=== PATIENT | female | born 1970 | race Caucasian/White ===

== ENCOUNTER 2019-10-19 15:49 | Inpatient (IN) | payer OTHER ==
--- NOTE | 2019-10-19 16:02 | ED ---
Complex/Multi-Sys Presentation - HPI Summary HPI Summary: 49 y/o F brought in by EMS from home for concern for seizure witnessed seizure by . From home, does not remember what happened. Has been feeling sick recently with nausea/vomiting and diarrhea for 3 days. Tmax 100.7F. Some abdominal pain in middle of abdomen. No medical problems. No hx seizures, no FHx seizures. Reporting back pain. Patient thinks pain from being in bed. Feels like a burning pain. Reporting 10/10 band like back pain. No hx back pain. No trauma. Symptoms aggravated by nothing. Symptoms alleviated by nothing. Medications reviewed. - History Of Current Complaint Chief Complaint: EDGeneral Time Seen by Provider: 10/19/19 15:56 Hx Obtained From: Patient Onset/Duration: Still Present Aggravating Factor(s): Nothing Alleviating Factor(s): Nothing - Allergies/Home Medications Allergies/Adverse Reactions: Allergies Allergy/AdvReac Type Severity Reaction Status Date / Time No Known Allergies Allergy Verified 10/29/18 07:09 Home Medications: Home Medications NK [No Home Medications Reported] 10/19/19 [History Confirmed 10/19/19] PMH/Surg Hx/FS Hx/Imm Hx Sensory History: Reports: Hx Contacts or Glasses - GLASSES Opthamlomology History: Reports: Hx Contacts or Glasses - GLASSES Neurological History: Denies: Hx Seizures Psychiatric History: Reports: Hx Anxiety - Cancer History Hx Chemotherapy: No Hx Radiation Therapy: No - Surgical History Surgery Procedure, Year, and Place: TUBAL LIGATION, CHOLECYSTECTOMY [facility] Hx Anesthesia Reactions: No Infectious Disease History: No Infectious Disease History: Denies: History Other Infectious Disease, Traveled Outside the [place] in Last 30 Days - Family History Known Family History: Positive: Cardiac Disease, Hypertension, Diabetes, Other - stroke, cancer, thyroid disease Negative: Seizure Disorder - Social History Alcohol Use: Rare Substance Use Type: Reports: None Hx Tobacco Use: Yes Smoking Status (MU): Heavy Every Day Tobacco Smoker Amount Used/How Often: 1 PPD Have You Smoked in the Last Year: Yes Review of Systems Positive: Fever Positive: Abdominal Pain, Vomiting, Diarrhea, Nausea Positive: Other - back pain Neurological/Mental Status: Other - seizure All Other Systems Reviewed And Are Negative: Yes Physical Exam - Summary Physical Exam Summary: Constitutional: Well-developed, Well-nourished, Alert. (-) Distressed Skin: Warm, Dry HENT: Normocephalic; Atraumatic Eyes: Conjunctiva normal Neck: Musculoskeletal ROM normal neck. (-) JVD, (-) Stridor, (-) Nuchal rigidity Cardio: Rhythm regular, rate normal, Heart sounds normal; Intact distal pulses; Radial pulses are 2+ and symmetric. (-) Murmur Pulmonary/Chest wall: Effort normal. (-) Respiratory distress, (-) Wheezes, (-) Rales Abd: Soft, (-) tenderness, (-) Distension, (-) Guarding, (-) Rebound Musculoskeletal: (-) Edema; lower thoracic and upper lumbar spine tenderness >L than R Lymph: (-) Cervical adenopathy Neuro: Alert, Oriented x2. GCS 14 Psych: deferred Triage Information Reviewed: Yes Vital Signs On Initial Exam: Initial Vitals Temp Pulse Resp BP Pulse Ox 100.0 F 89 16 178/109 94 10/19/19 15:52 10/19/19 15:52 10/19/19 15:52 10/19/19 15:52 10/19/19 15:52 Vital Signs Reviewed: Yes Procedures - Sedation Patient Received Moderate/Deep Sedation with Procedure: No - Lumbar Puncture Left Lateral Lumbar Puncture Note: 2 attempts Unsuccessful Diagnostics - Vital Signs Vital Signs Temp Pulse Resp BP Pulse Ox 10/19/19 15:52 100.0 F 89 16 178/109 94 - Laboratory Result Diagrams: 10/22/19 04:35 10/22/19 04:35 Lab Statement: Any lab studies that have been ordered have been reviewed, and results considered in the medical decision making process. - CT BRAIN CT Interpretation Completed By: Radiologist - IMPRESSION: No acute intracranial pathology. ED physician has reviewed this imaging report. ABD/PEL CT Interpretation Completed By: Radiologist - IMPRESSION: 1. There is mild wall thickening and possible wall edema involving the proximal duodenum, cannot exclude mild duodenitis. 2. There is colonic diverticulosis without evidence for acute diverticulitis. 3. No acute traumatic CT pathology of the abdomen or pelvis. ED physician has reviewed this imaging report. Complex Multi-Symp Course/Dx Course Of Treatment: 49 y/o F p/w AMS and seizure as well as n/v/d. - on arrival to ED patient confused, reporting back pain. Hx limited 2/2 patient confusion, called but no significant hx obtained other than possible seizure. Hx drug use and EtOH use. Denies IVDU. DDx includes overodose/ substance use, EtOH w/d, meningitis (attempted LP unable to 2/2 patient tolerance and difficult tap, covered broadly w ABx). Also consider GI source infection w WBC 24, CT a/p unremarkable (bone cuts added for T spine pain). Also consider epidural abscess/osteo given fever and back pain. Denies SOB, CXR obtained in setting of L sided back pain to r/o PNA. Admit to medicine - Diagnoses Provider Diagnoses: Altered mental status, Sepsis, Seizure - Physician Notifications Discussed Care Of Patient With: Gary Carson - Agrees to admit Time Discussed With Above Provider: 20:27 Discharge ED - Sign-Out/Discharge Documenting (check all that apply): Patient Departure - Discharge Plan Condition: Stable Disposition: ADMITTED TO [facility] - Billing Disposition and Condition Condition: STABLE Disposition: Admitted to [facility] - Attestation Statements Document Initiated by Kimberlyibe: Yes Documenting Scribe: Yvonne Richter Provider For Whom Kendra is Documenting (Include Credential): Donna Hand MD Scribe Attestation: IYvonne, scribed for Donna Hand MD on 10/22/19 at 0714. Scribe Documentation Reviewed: Yes Provider Attestation: The documentation as recorded by the scribYvonne talley accurately reflects the service I personally performed and the decisions made by me, Donna Hand MD Status of Scribe Document: Viewed
[2019-10-19] MEDS ORDERED: Ondansetron INJ* 2 MG/ML VIAL IV ONE (16:12)
[2019-10-19] MEDS ORDERED: Morphine 4 MG/ML VIAL (1 ml) 4 MG/ML VIAL IV ONE ×2 (16:12→18:00)
[2019-10-19] MEDS ORDERED: NS 0.9% 1000 ML** 1,000 ML IV ONE (16:12)
[2019-10-19 16:41] LABS: ABS Lymphocytes 1.8 10^3/ul (1.0-4.8); ABS Monocytes 2.4 10^3/ul (0-0.8); ABS Neutrophils 20.6 10^3/ul (1.5-7.7); Eosinophil % 0.1 %; Hematocrit 50 % (35-47); Hemoglobin 17.2 g/dL (12.0-16.0); Lymphocyte % 7.4 %; Mean Corpuscular HGB Conc 34 g/dL (31-36); Mean Corpuscular Hemoglobin 32 pg (27-31); Mean Corpuscular Volume 92 fL (80-97); Mean Platelet Volume 9.3 fL (7.4-10.4); Platelet Count 239 10^3/uL (150-450); Red Blood Count 5.47 10^6 /uL (3.70-4.87); Red Cell Distribution Width 13 % (10-15); White Blood Count 24.8 10^3/uL (3.5-10.8)
[2019-10-19 16:50] LABS: INR 1.1 (0.82-1.09)
[2019-10-19] MEDS ORDERED: cefTRIAXone(*) 2 GM in NS 0.9% 100 ML* 100 ML IVPB ONE (17:08)
[2019-10-19] MEDS ORDERED: Ampicillin IV* 2 GM in NS 0.9% 100 ML* 100 ML IVPB ONE (17:08)
[2019-10-19 17:11] LABS: Acetaminophen < 15 mcg/mL; Albumin/Globulin Ratio 1.4 (1-3); BUN/Creatinine Ratio 21.6 (8-20); Calcium 8.9 mg/dL (8.6-10.3); EGFR African American 100.5 (>60); EGFR Non-African American 83.1 (>60); Globulin 2.8 g/dL (2-4); Potassium 3.1 mmol/L (3.5-5.0); Salicylate < 2.50 mg/dL (<30); Total Bilirubin 0.8 mg/dL (0.2-1.0); Total Protein 6.8 g/dL (6.4-8.9)
[2019-10-19] MEDS ORDERED: Iohexol 300* (CONTRAST) 10 ML SDV IV ONE (17:52)
[2019-10-19] MEDS ORDERED: Vancomycin(*) 1,500 MG in NS 0.9% 250 ML* 250 ML IVPB ONE (18:00)
[2019-10-19] MEDS ORDERED: Vancomycin(*) 1,000 MG VIAL IVPB SCH (18:00)
[2019-10-19] MEDS ORDERED: Lidocaine 1% INJ* 10 MG/ML 30 ML SDV INJ ONE (19:15)
[2019-10-19] MEDS ORDERED: HYDROmorphone INJ* 0.5 MG/0.5 ML SYRINGE IV ONE (19:15)
[2019-10-19] MEDS ORDERED: NS 0.9% 100 ML* 100 ML ONE (19:22)
[2019-10-19] MEDS ORDERED: NS 0.9% 250 ML* 250 ML ONE (19:22)
[2019-10-19] MEDS ORDERED: fentaNYL* 50 MCG/ML 2 ML VIAL (100 MCG VIAL) IV SLOW PU ONE (20:08)
[2019-10-19 21:03] LABS: Urine Benzodiazepine Screen None Detected (None Detect); Urine Opiates Screen Presumptive Positive (None Detect)
[2019-10-19] MEDS ORDERED: HYDROmorphone INJ* 0.5 MG/0.5 ML SYRINGE IV SLOW PU PRN (21:06)
[2019-10-19] MEDS ORDERED: Ondansetron INJ* 2 MG/ML VIAL IV PRN (21:10)
[2019-10-19 21:26] LABS: C Reactive Protein 6.51 mg/L (<8.01)
[2019-10-19] MEDS ORDERED: Acetaminophen TAB* 325 MG PO PRN (22:01)
[2019-10-19 22:49] LABS: Alcohol < 10 mg/dL (<10)
[2019-10-19] MEDS ORDERED: levETIRAcetam 1000MG IVPREMIX* 1,000 MG/100 ML BAG IVPB ONE (23:37)
[2019-10-19] MEDS ORDERED: Potassium Chlor TAB* 20 MEQ TAB.ER PO ONE (23:47)
[2019-10-20 00:08] LABS: Prolactin 7.8 ng/mL (1.0-25.0)
[2019-10-20 00:18] LABS: Troponin I 0.01 ng/mL (<0.03)
[2019-10-20] MEDS ORDERED: Iohexol 300* (CONTRAST) 10 ML SDV IV ONE (00:22)
[2019-10-20] MEDS ORDERED: Nicotine* 2MG (FRUIT FLAVOR) GUM PO PRN (00:37)
[2019-10-20] MEDS: NS 0.9% 1000 ML** 1,000 ML IV SCH ×2 (01:30→12:04)
[2019-10-20] MEDS ORDERED: HYDROmorphone INJ* 0.5 MG/0.5 ML SYRINGE IV SLOW PU PRN ×2 (02:17→02:18)
[2019-10-20] MEDS ORDERED: HYDROmorphone INJ1* 1 MG/ML SYRINGE ONE (02:26)
[2019-10-20] MEDS ORDERED: HYDROmorphone INJ1* 1 MG/ML SYRINGE IV SLOW PU PRN (02:46)
[2019-10-20] MEDS ORDERED: Potassium Chlor TAB* 20 MEQ TAB.ER PO ONE (04:00)
--- NOTE | 2019-10-20 04:03 | HP ---
CC: Dr. Jaime* ADMISSION HISTORY AND PHYSICAL: DATE OF ADMISSION: 10/19/19 PRIMARY CARE PHYSICIAN: Dr. Jaime. ADMITTING PHYSICIAN: Dr. Carson* (Jefry Shaw NP). CHIEF COMPLAINT: Sick for the last few days. HISTORY OF PRESENT ILLNESS: Ms. Henson is a 49-year-old female with past medical history significant for anxiety. She presented to the emergency department today via EMS after her called for what he reports was a seizure. The patient states that she went to bed last night, got up to go to the bathroom 1 time and the next thing she remembers is waking up with EMS in her home. She states that her says that she had a seizure but she is unaware of this. She does not remember any such activity. She does not remember falling. Denies any known injuries or accidents. She denies any history of prior seizures or familial history of seizures. She states that she was sick for the last 3 days with nausea, vomiting, and diarrhea. She has also had some abdominal pain and some left-sided upper back pain for the last few days. She denies eating any new foods or eating any foods that her did not eat. States that her is in his usual state of health. States that she has had very little fluids and no food for the last few days. States that the abdominal pain is near the middle of her abdomen. It feels tight at times and she is often nauseous. The back pain is to the mid to upper left area of her back, rates 9/10, constant, burning/tight pain. She denies any respiratory symptoms. No rhinorrhea, sore throat, cough, or shortness of breath. Denies any chest pain unusual or significant joint or muscle aches other than stated already. States that she has also had a headache for the last few days in the frontal area. She has taken ibuprofen, NyQuil, and DayQuil, unsure the last time that these were taken, with little to no relief. The patient agreed that her could be called. Her 's name is Shay, number [phone]. He states that the patient had what looked like a seizure last night as well as earlier today. He states that both episodes lasted for about a few minutes each. The patient was unresponsive to her , noted that she was not breathing, her face was turning "black," she was diaphoretic, foaming at the mouth, and her muscles would get extremely tense and he could not break her muscle tension. States that the episode earlier today lasted for approximately 4 minutes. denies any recent drug use by his other than her taking his prescribed gabapentin. States he is unaware of any other medications that she may take. He is unsure of how many pills she takes at a time. He states that he thinks sometimes she will take about 10 pills at a time. He states she takes these for her back pain. The patient originally denied any illicit drug use. After urine tox screen came back positive for opiates and cannabinoids, the patient was re- questioned about these substances. The patient stated that she did recently have an edible marijuana treat. Denies any injectable drug use. States that she may have had an opiate-based pill about a week ago but is unsure of what it was and is unsure of exactly when. She is not very forthcoming with this information. The patient denies any bleeding or clotting disorders. Denies any recent hospitalizations or recent antibiotic use. While in the emergency department, there was an unsuccessful attempt at an LP. Meningitis was within the differential list originally in relation to possible seizure activity especially with a white count of 24.8. However, it was discussed with both ED provider and Dr. Carson that it seems very unlikely for the patient to have meningitis. She has no nuchal rigidity, negative Brudzinski sign, negative Kernig sign. While in the emergency department, her temperature did reach 100.0, tachycardic at times with heart rate in the 80s to low 100s, respiratory rate within normal limits, blood pressures high with systolic in the 140s to 190s and diastolic often in the low to mid 100s. She did receive pain medications, antinausea medications, ampicillin, ceftriaxone, and vancomycin. She also received 1 L of normal saline. Due to the patient's unexplained leukocytosis and what sounds like seizure-like activity, Hospital Medicine was asked to evaluate the patient for admission. PAST MEDICAL HISTORY: Anxiety. PAST SURGICAL HISTORY: 1. Tubal ligation in 1992. 2. Cholecystectomy in 2001. 3. Breast surgery in 2019. HOME MEDICATIONS: States no usual home medications. ALLERGIES: No known drug allergies. FAMILY HISTORY: Father with heart disease, hypertension, diabetes mellitus, and congestive heart failure. Mother with hypertension. No known familial history of seizures. SOCIAL HISTORY: The patient states she is undecided about a surrogate decision maker. Wishes to continue as full code status. She is . Has 3 children. 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 States that she smokes 1 pack of cigarettes per day, has been doing this for she states 30+ years for a 30+ pack year history. Denies any alcohol use. Admits to drug use as stated in the HPI. Denies any other illicit drug use. REVIEW OF SYSTEMS: A 14-point review of systems was completed with this patient. Please see HPI for pertinent positives and negatives. PHYSICAL EXAMINATION CONSTITUTIONAL: The patient is sitting up in bed, appears to be in significant discomfort. VITAL SIGNS: Last vital signs, temp 100.0, pulse 98, respiratory rate 20, O2 saturation 95% on room air, BP 161/95. HEENT: PERRL. LYMPHATIC: No cervical lymphadenopathy. RESPIRATORY: Lung sounds clear throughout bilaterally. Normal respiratory effort. CARDIOVASCULAR: Heart rate irregular, fast. S1, S2 present. No murmurs, rubs , or gallops noted. GI: Hyperactive bowel sounds throughout. Abdomen soft, some tenderness noted near epigastric area and slightly more towards the left upper quadrant. EXTREMITIES: No edema. MUSCULOSKELETAL: Range of motion and strength within normal limits to all extremities. SKIN: Appears dry and intact. Per access site, 4 attempted LP covered with dressing. No drainage noted. NEUROLOGIC: Alert and oriented x3. Cranial nerves II through XII grossly intact. No nuchal rigidity. Negative Brudzinski sign. Negative Kernig sign. DIAGNOSTIC STUDIES/LAB DATA: CT brain, impression states no acute intracranial pathology. Abdomen and pelvis CT, impression states there is mild wall thickening and possible wall edema involving the proximal duodenum, cannot exclude mild duodenitis. There is colonic diverticulosis without evidence for acute diverticulitis. No acute traumatic CT pathology of the abdomen or pelvis. Chest x-ray: Read pending. Thoracic spine CT: Read pending. EKG: Sinus tachycardia with a rate of 101 beats per minute. No significant ST elevations or depressions. This was reviewed with Dr. Carson. Laboratory values: WBC 24.8, RBC 5.47, hemoglobin 17.2, hematocrit 50, MCV 92, MCH 32, MCHC 34, RDW 13, platelet count 239, absolute neutrophils 20.6, absolute monos 2.4. INR 1.10. Sodium 135, potassium 3.1, chloride 102, carbon dioxide 24, anion gap 9, BUN 16, creatinine 0.74, estimated GFR 83.1, BUN and creatinine ratio 21.6, glucose 138, lactic acid 1.1, calcium 8.9, magnesium pending. Total bilirubin 0.8, AST 31, ALT 37, alk phos 265. Troponin 0.01. CRP 6.51. Total protein 6.8, albumin 4.0, globulin 2.8, albumin-globulin ratio 1.4, lipase 75, prolactin 7.8. Toxicology report, salicylates less than 2.5. Urine opiate screen presumptive positive. Acetaminophen less than 15. Urine barbiturates not detected. Urine phencyclidine not detected. Urine amphetamines not detected. Urine benzodiazepines not detected. Urine cocaine not detected. Urine cannabinoids presumptive positive. Serum alcohol less than 10. ASSESSMENT AND PLAN: Ms. Henson is a 49-year-old female with past medical history significant for anxiety. She presented today to the emergency department via EMS after reports of seizure-like activity from her . 1. Seizure-like activity. Per 's report, the patient had what he thought to be 2 seizures over the last couple of days. Prolactin level 7.8. Differentials include adverse effect from unknown amounts of gabapentin as status epilepticus is a known adverse effect versus underlying infection versus drug withdrawal. Neurology consult. EEG ordered. Keppra loading dose and maintenance dose ordered. Gabapentin level ordered. Seizure precautions. 2. Systemic inflammatory response syndrome. WBC 24.8, temp 100.0, and tachycardia. Lactic 1.1. The patient does not appear to have acute systemic infection at this time. Blood cultures drawn. The patient has received 1 L IVF bolus and has been hypertensive since arrival. She has also received antibiotics in the emergency department including ampicillin, ceftriaxone, and vancomycin. We will be watching her very closely. Labs in a.m. 3. Leukocytosis. If the patient was truly having seizures, this could be transient spike in WBCs. However, there may be an unidentified infection. Meningitis is very low on the list of differentials considering the negative nuchal rigidity, negative Brudzinski, and negative Kernig sign. However, she does not appear to have any other obvious signs of infection at this time. Again, we will continue to watch her very closely. The patient also has been having nausea, vomiting, and diarrhea for the last few days. She is likely dehydrated, which could also be a potentiating factor for leukocytosis. Labs in a.m. 4. Back pain. It sounds as if the patient has had ongoing back pain for quite some time. However, she believes that this pain to her left upper back is somewhat new over the last few days. Her notes that she fell in the bathroom prior to her seizure earlier today. The patient is unaware if she has had any other episodes of falling or injury. However, given the clinical picture, it is reasonable to assume that this may be from injury. CT thoracic spine ordered. 5. Hypokalemia. Potassium level 3.1. Replete with potassium chloride tab 40 mEq x2 doses ordered. Labs in a.m. 6. Hypertension. The patient has been hypertensive since arrival. I will continue to monitor her blood pressures. If she continues to be hypertensive, it will be reasonable to add an ZAKIYA inhibitor to her medication regimen. 7. Polysubstance abuse. Social work consult entered. 8. Tobacco use. Tobacco cessation education ordered. Nicotine gum p.r.n. ordered. 9. FEN: Regular diet. 10. Code status: Full code. 11. DVT prophylaxis: SCDs. Holding chemical DVT prophylaxis in relation to attempted LP. 12. Consults. Neurology consult. We will contact in a.m. TIME SPENT: Approximately 75 minutes was spent on this admission with about 35 being [id number] with the patient for interview, exam, and reviewing plan of care. This case has been reviewed by my attending physician, Dr. Carson, and he agrees with this plan. JEFRY SHAW NP [id number]/CPS #: [id number] ADDENDUM: At approximately 0420 nursing called stating that pt is becoming more agitated, pulling at her medical devices, not seeming to be in as much pain but generally agitated and more restless. Reports that pt is diaphoretic. VSS with HR 96. Given her clinical findings, inconsistencies during history taking, and current presentation it is reasonable to assume she is withdrawing, may be opiates as they were found via urine tox screen but may be another substance such as ETOH. She will be placed on WAM protocol with ativan PRN especially given that she likely had recent seizures, dilaudid d/c'd, will have acetaminophen and tramadol available for pain. Recommend avoiding any other higher potency narcotic medications. MTDD
[2019-10-20] MEDS ORDERED: Thiamine INJ* 100 MG/ML 2 ML VIAL IM ONE (04:22)
[2019-10-20] MEDS ORDERED: Acetaminophen TAB* 325 MG PO PRN (04:22)
[2019-10-20] MEDS ORDERED: traMADol TAB* 50 MG PO PRN (04:51)
[2019-10-20] MEDS ORDERED: LORazepam TAB(*) 1 MG PO SCH (05:00)
[2019-10-20] MEDS ORDERED: LORazepam INJ* 2 MG/ML 1 ML VIAL IV PUSH ONE (07:27)
[2019-10-20] MEDS ORDERED: Lorazepam PYXIS KEY PRN (07:27)
[2019-10-20] MEDS ORDERED: LORazepam INJ* 2 MG/ML 1 ML VIAL ONE (07:30)
[2019-10-20] MEDS ORDERED: LORazepam INJ* 2 MG/ML 1 ML VIAL IV PUSH SCH (08:00)
[2019-10-20] MEDS ORDERED: levETIRAcetam TAB* 500 MG PO SCH (09:00)
[2019-10-20 09:10] LABS: Hematocrit 50 % (35-47); Hemoglobin 17.6 g/dL (12.0-16.0); Mean Corpuscular HGB Conc 35 g/dL (31-36); Mean Corpuscular Hemoglobin 32 pg (27-31); Mean Corpuscular Volume 92 fL (80-97); Mean Platelet Volume 9.3 fL (7.4-10.4); Platelet Count 234 10^3/uL (150-450); Red Blood Count 5.49 10^6 /uL (3.70-4.87); Red Cell Distribution Width 14 % (10-15)
[2019-10-20] MEDS ORDERED: chlordiazePOXIDE CAP* 25 MG PO ONE (09:14)
[2019-10-20 09:23] LABS: ABS Basophils 0.1 10^3/ul (0-0.2); ABS Lymphocytes 3.1 10^3/ul (1.0-4.8); ABS Monocytes 2.4 10^3/ul (0-0.8); ABS Neutrophils 16.5 10^3/ul (1.5-7.7); Eosinophil % 0.2 %
[2019-10-20 09:28] LABS: BUN/Creatinine Ratio 17.9 (8-20); Blood Urea Nitrogen 12 mg/dL (6-24); CO2 Carbon Dioxide 23 mmol/L (22-32); Calcium 8.6 mg/dL (8.6-10.3); Chloride 102 mmol/L (101-111); EGFR African American 112.7 (>60); EGFR Non-African American 93.2 (>60); Glucose 117 mg/dL (70-100); Sodium 133 mmol/L (135-145)
[2019-10-20] MEDS ORDERED: Piperacillin/Tazobac ADVAN(*) 3.375 GM in NS 0.9% 100 ML* 100 ML IVPB ONE (09:50)
[2019-10-20] MEDS ORDERED: Vancomycin per Pharmacy* NOTE FOLLOW UP SCH (10:00)
[2019-10-20] MEDS ORDERED: Zosyn per Pharmacy* NOTE FOLLOW UP SCH ×2 (10:00)
--- NOTE | 2019-10-20 10:08 | PN ---
Subjective Date of Service: 10/20/19 Interval History: Admitted overnight. LP not successful. EEG performed and results pending. Received collateral from patient's mother Ayanna Rooney that patient has been experiencing emesis for 3 days. States patient reports she felt very ill for 3 days and stayed in bed. Starting yesterday, patient started experiencing severe upper back pain, she thought it was from being in bed so long. Then, pt's son informed pt's mother that pt's noted that she lost consciousness and so he "banged her head against the floor" several times to "wake her up". Her has "brain damage" from history of multiple overdoses. Per patient's mother, her family called the ambulance 2 days ago, but the patient refused to come to the hospital. They called again yesterday and that is when she presented to the ER. The patient is too embarassed about her history of OUD ( intranasal heroin) and has not sought care for herself but takes her 's gabapentin and Suboxone. Mother denies h/o IV drug use. On exam this AM, patient able to state her name and state she has a headache, but frequently has agitated delirium and cannot participate in interview. Due to respiratory distress and hypoxia, she was transferred to the ICU. Objective Active Medications: Acetaminophen (Tylenol Tab*) 650 mg PO Q4H PRN PRN Reason: PAIN - MILD Folic Acid (Folvite Tab*) 1 mg PO DAILY [facility] Sodium Chloride (Ns 0.9% 1000 Ml) 1,000 mls @ 100 mls/hr IV PER RATE [facility] Last Admin: 10/20/19 01:30 Dose: 100 mls/hr Vancomycin HCl 1,000 mg/ (Sodium Chloride) 250 mls @ 166.667 mls/hr IVPB ONCE ONE; Protocol Stop: 10/20/19 11:18 Piperacillin Sod/Tazobactam (Sod 3.375 gm/ Sodium Chloride) 100 mls @ 200 mls/ hr IVPB ONCE ONE Stop: 10/20/19 10:19 Levetiracetam (Keppra Tab*) 500 mg PO BID [facility] Lorazepam (Ativan Tab(*)) 0 - 6 mg PO .PER [facility] PROTOCOL [facility]; Protocol Last Admin: 10/20/19 04:47 Dose: 4 mg Lorazepam (Ativan Inj*) 0 - 3 mg IV PUSH .PER [facility] PROTOCOL [facility]; Protocol Miscellaneous (Ativan Pyxis [place]) 1 ea N/A .ATIVAN IV MURCIA PRN PRN Reason: PYXIS MURCIA Multivitamins/Minerals (Theragran/Minerals Tab*) 1 tab PO DAILY [facility] Nicotine Polacrilex (Nicotine Gum*) 2 mg PO Q2H PRN PRN Reason: CRAVING Ondansetron HCl (Zofran Inj*) 4 mg IV Q4H PRN PRN Reason: NAUSEA Pharmacy Consult (Vancomycin Per Pharmacy*) 1 note FOLLOW UP .VANC PER PHARMACY [facility]; Protocol Pharmacy Consult (Zosyn Per Pharmacy*) 1 note FOLLOW UP .ZOSYN PER PHARMACY [facility] Pharmacy Consult (Zosyn Per Pharmacy*) 1 note FOLLOW UP .ZOSYN PER PHARMACY [facility] Thiamine HCl (Vitamin B-1 Tab*) 100 mg PO DAILY [facility] Tramadol HCl (Ultram*) 50 mg PO Q6H PRN PRN Reason: PAIN - MODERATE Last Admin: 10/20/19 05:10 Dose: 50 mg Vital Signs - 8 hr 10/20/19 10/20/19 10/20/19 02:27 02:34 02:36 Temperature Pulse Rate Respiratory 20 20 20 Rate Blood Pressure (mmHg) O2 Sat by Pulse Oximetry 10/20/19 10/20/19 10/20/19 04:02 04:13 04:22 Temperature 97.9 F Pulse Rate 96 Respiratory 20 20 20 Rate Blood Pressure 148/99 (mmHg) O2 Sat by Pulse 94 Oximetry 10/20/19 10/20/19 10/20/19 04:47 05:10 06:45 Temperature Pulse Rate Respiratory 20 20 20 Rate Blood Pressure (mmHg) O2 Sat by Pulse Oximetry 10/20/19 10/20/19 10/20/19 06:49 07:24 07:34 Temperature 100.2 F Pulse Rate 106 Respiratory 36 30 32 Rate Blood Pressure 176/115 (mmHg) O2 Sat by Pulse Oximetry 10/20/19 10/20/19 07:37 08:02 Temperature 98.8 F Pulse Rate 105 Respiratory 32 30 Rate Blood Pressure 146/90 (mmHg) O2 Sat by Pulse 92 Oximetry Oxygen Devices in Use Now: None Appearance: ill-appearing woman, disheveled Eyes: No Scleral Icterus Ears/Nose/Mouth/Throat: - - OP with secretions Neck: NL Appearance and Movements; NL JVP, Trachea Midline Respiratory: - - mucous rattle obscuring most adventitious sounds Cardiovascular: NL Sounds; No Murmurs; No JVD, RRR Abdominal: - - no grimace to palpation, soft Extremities: No Edema Skin: No Rash or Ulcers, - - dirt under nails and over feet Neurological: - - can state name, will occasionally track with eyes and close eyes to visual threat, PERRL, moving all extremities spontaneously and symmetrically but unable to follow commands Result Diagrams: 10/20/19 08:59 10/20/19 11:36 Assess/Plan/Problems-Billing Assessment: 49W with OUD (intranasal heroin), h/o alcohol use disorder, and anxiety, who presents from home with subacute malaise, back pain, fevers, and eventually loss of consciousness. Found with altered mental status and leukocytosis. - Patient Problems (1) Delirium Comment: Pt with h/o etoh and opioid abuse, and could be withdrawing from either. Also with questionable history of seizure at home prior to arrival - could be post-ictal. Per collateral from family - pt took extra doses of her 's suboxone and gapabentin for significant back pain, so medication side effect could be playing a role. Finally, this could be toxic-metabolic encephalopathy from unclear infection, given fevers and leukocytosis. - Neuro consult greatly apprecaited and Lawrence started - [facility] protocol initiated - supportive care - on broad spectrum abx in case of bacterial infection - f/u gabapentin level (2) Respiratory distress Comment: Possible consolidation on CXR, in context of leukocytosis and fevers. Unknown if patient had cough or dyspnea. Has been vomiting over the last 3 days and may have had a seizure, so aspiration is also likely. - on broad spectrum abx - supplemental O2 - transferred to ICU for higher level of care (3) Opioid use disorder Comment: History of intranasal heroin and taking her 's suboxone. Family denies IVDU. - monitor for signs of withdrawal and treat prn symptoms - consider [facility] referral on discharge (4) DVT prophylaxis Comment: - lovenox
[2019-10-20 10:19] LABS: Folate > 20.00 ng/mL (>3.99)
[2019-10-20] MEDS ORDERED: Vancomycin(*) 1,500 MG in NS 0.9% 250 ML* 250 ML IVPB ONE (10:30)
[2019-10-20] MEDS ORDERED: Haloperidol INJ IV/IM* 5 MG/ML AMP ONE (10:55)
[2019-10-20] MEDS ORDERED: Haloperidol INJ IV/IM* 5 MG/ML AMP IV SLOW PU ONE (10:55)
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
--- NOTE | 2019-10-20 11:00 | EEG ---
ELECTROENCEPHALOGRAPHY: DATE OF STUDY: 10/20/19 LOCATION: She is an outpatient in room 339. REFERRING PHYSICIAN: Doris Kingston NP CLINICAL PROBLEM: New onset seizures the evening before this recording. The patient is delirious. MEDICATIONS: Include: 1. Keppra. 2. Folic acid. 3. Lorazepam detox protocol. 4. Tramadol p.r.n. REPORT: This 19-channel EEG is remarkable for background rhythms consisting of excessive beta activity seen with a bifrontal predominance. The patient is described as confused and unable to state name or follow commands. There is diffuse background slowing in the low voltage delta and mainly theta range. There is an episodic increased theta activity of moderate voltage seen in the left frontotemporal region. The patient may drowse with vertex slowing. There may be some POSTS in the right occipital area not seen in the left. There are no clinical events. Stage II sleep is not identified. CLINICAL IMPRESSION: Abnormal EEG due to excessive beta rhythms consistent with benzodiazepine drug effect. In addition, there is diffuse slowing and disorganization of background rhythm consistent with diffuse encephalopathy. There is suggestion of episodic focal slowing from the left frontal temporal region suggestive of possible focal neuronal dysfunction in the left frontotemporal region. There are no ictal events and no epileptiform features to this recording. [id number]/[facility] #: [id number] [facility]
[2019-10-20 11:11] LABS: Anion Gap 8 mmol/L (2-11)
[2019-10-20] MEDS: Folic Acid TAB* 1 MG PO SCH (11:13)
[2019-10-20] MEDS: Thiamine TAB* 100 MG TAB PO SCH (11:13)
[2019-10-20] MEDS: Multivitamins/Minerals TAB PO SCH (11:13)
[2019-10-20 11:34] LABS: Creatine Kinase 11708 U/L (10-223)
[2019-10-20] MEDS: levETIRAcetam IV* 750 MG in NS 0.9% 100 ML* 100 ML IVPB SCH (12:38)
--- NOTE | 2019-10-20 14:58 | CONS ---
NEUROLOGY CONSULTATION DATE OF CONSULT: 10/20/2019. She is an inpatient in room 339. REFERRING PROVIDER: Doris Kingston NP. PRIMARY CARE PHYSICIAN: Dr. Jaime. CHIEF COMPLAINT: Seizure, mental status changes. HISTORY OF PRESENT ILLNESS: Tina Henson is a 49-year-old woman who presented to the emergency department via ambulance yesterday, reportedly with new onset seizures. The study is from the medical record as the patient is current encephalopathic. According to the records, she remembers waking up with ambulance attendants in her home. Her reported to the ambulance attendants that she had a seizure the night before and then again yesterday early in the day. According the descriptions in the records, they lasted several minutes and she appeared diaphoretic, foaming at the mouth, tense muscles and her face became dark. The patient was able to give history to Doris Kingston NP last evening in the emergency room. She stated that she remembers going to the bathroom and the next thing she knows ambulance attendants were there. She reported and her corroborated that she had been sick for about three days with abdominal pain, vomiting, and nausea. She had mid to upper back pain and a frontal headache. She is not on any prescription medications, but according to the discussion between Doris Kingston and her , Shay, over the phone last evening, she was taking his Gabapentin. When she came in, she had a positive urine tox screen for opiates and cannabinoids and Dr. Ricci tells me that it has been confirmed that she was also taking her husbands Suboxone. The patient admitted to Doris Kingston that she had had a marijuana treat some time that week. She also reported that she had used an opiate based pill about a week before, but she was unsure what it was. Subsequently, the discovery that she had taken her 's Suboxone was made. An attempt was made at a lumbar puncture in the emergency room, but it was unsuccessful. She had a CT scan of the brain that was interpreted as normal. She was febrile in the emergency room with a temperature of 100.0 and she had an elevated white blood cell count. She was treated with Keppra, Ampicillin, Ceftriaxone, and Vancomycin in the emergency room, but it was not continued. On examination this morning, she is not able to provide any coherent history. She does nod at one point when asked if she has a headache. PAST MEDICAL HISTORY: Notable for a breast biopsy last October, interpreted as benign breast tissue with nonproliferative fibrocystic change. This was done for left nipple discharge. She has a history of cholelithiasis and cholecystitis in 2001. Review of prior medical records indicates a history of frequent headaches, anxiety, and bronchitis. HOME MEDICATIONS: She is reported as having no prescription medications at home , but has been taking her 's Gabapentin and Suboxone. CURRENT MEDICATIONS: Her current medications consist of: 1. Keppra 500 mg p.o. twice per day. 2. Folic acid 1 mg p.o. daily. 3. Lorazepam up to 6 mg per [facility] protocol. 4. Multivitamin one p.o. daily. 5. Zofran 4 mg IV q.6 hours as needed for nausea. 6. Vancomycin. 7. Zosyn. 8. Piperacillin/Tazobactam have been restarted. 9. She also also been prescribed Thiamin 100 mg p.o. per day. 10. Vancomycin has been restarted at 1500 mg. ALLERGIES: According to our computer records, she does not have any drug allergies. REVIEW OF SYSTEMS: From the patient is unproductive due to her encephalopathy. Her mentation is too disturbed to get any reliable responses. PHYSICAL EXAM: Most recent temperature is 98.5, temperature this morning was 100.2 maximum, T-max during the hospitalization is 100.2. Blood pressure was very elevated early on at about 180/100 to 110 and more recent is down to 142/ 85. She has been tachycardic in the 100 to 110 range and her respiratory rates running about 30. Oxygen saturation is 92 percent on room air. Heart tones sound normal. I do not hear any murmurs. Skin is warm and somewhat diaphoretic. Oral mucosa is moist. She has a fair amount of sialorrhea. On incomplete look at her tongue, I did not see any bite gonzalez. Neurologically she is moving restlessly and is nonverbal. She does nod her head occasionally to a question, but it is not considered reliable. Her pupils react briskly from about 4 to 5 mm down to about 2.5 to 3 mm. Her eye movements seem full. She has roving movements and looks about the room. I cannot get an adequate look at her fundus. She does not consistently respond to visual threat. She does weakly respond to nasal tickle symmetrically. Facial movement looks symmetrical. She has restless movements of all limbs symmetrically. There is no myoclonus or other adventitious movements noted. Plantar responses are briskly withdraw bilaterally. She does not follow any commands. DIAGNOSTIC STUDIES/LAB DATA: EEG just done within the hour which reveals excessive beta activity consistent with benzodiazepine drug effect. There is diffuse slowing consistent with diffuse cerebral dysfunction. There is occasional focal slowing from the left frontotemporal area, but there are no epileptiform discharges. Other laboratory data is notable for a CBC with a white blood cell count on admission of 24.8 with 20.6% absolute neutrophils and a persistent elevated white blood cell count this morning at 9:00 a.m. at 22,000. Again with elevated neutrophils at 16.5. Her hemoglobin is elevated at 17.2 and platelet count is normal at 239,000. Toxicology screen from yesterday was positive for opiates and cannabinoids. Serum alcohol was less than 10. Her chemistry profile was unremarkable. Initial troponin is 0.01. C-reactive protein is 6.5. Vitamin B12 level this morning is normal at 404. Prolactin level yesterday at 1630 hours was 7.8. INR is borderline elevated at 1.10. I reviewed her head CT which was interpreted as normal. There is a suspicion on my review of white matter hypodensity in the right apical area of the right hemisphere. Chest x-ray on admission is interpreted as showing patchy atelectasis versus consolidation of the right lung base. A CT of the abdomen and pelvis on admission is notable for mild thickening and possible edema involving the proximal duodenum. the radiologist cannot exclude mild duodenitis. CT scan of the thoracic spine was interpreted as no significant pathology. EKG is reviewed and reveals sinus tachycardia and consider right atrial enlargement. IMPRESSION: Impression is that of encephalopathy of unclear etiology, but an infectious etiology remains high in the differential. There is a possibility of a right lung infection, but also the possibility of an intracranial infection remains. Her CT scan of the brain is interrupted as normal, but to my review I think this is a suspicious area in the very apical white matter of the right hemisphere. I discussed my initial impression with Dr. Ricci and recommended that the patient have an MRI scan of the brain with and without contrast to look for an abscess. If that negative, then I think a lumbar puncture would be indicated. Dr. Ricci has reinstituted broad spectrum antibiotic coverage. I agree with Keppra therapy for now and I would change it to intravenous. I will continue to follow her along with you. [id number]/[facility] #: [id number] MALENA
[2019-10-20] MEDS: Dexmedetomidine* 1,000 MCG in NS 0.9% 250 ML* 240 ML IV SCH (15:04)
[2019-10-20] MEDS ORDERED: Gadoteridol* (CONTRAST) 279.3 MG/ML 10 ML IV ONE (15:25)
[2019-10-20] MEDS ORDERED: NS 0.9% 1000 ML** 1,000 ML IV SCH (16:24)
[2019-10-20] MEDS: ZOSYN 3.375 GM Q8H per EXTENDED INFUSION IVPB SCH ×2 (16:57)
--- NOTE | 2019-10-20 17:04 | CONS ---
NEUROLOGY CONSULTATION: ADDENDUM: DATE OF CONSULT: 10/20/19 LOCATION: She is in ICU bed 2. SHIPPING RECEIVING MANAGER: Kelly Beauchamp NP INTERVAL HISTORY: Since I saw Tina this morning she was transferred to the intensive care unit. In the intensive unit, for her agitation she was put on Precedex. There had been no clinical changes otherwise. There had been no observed seizures. CURRENT MEDICATIONS: Consist of: 1. Keppra 750 mg IV q.12 hours. 2. Nicotine patch. 3. Zosyn IV q.8 hours. 4. Precedex infusion. 5. Thiamine 100 mg p.o. 6. Vancomycin per pharmacy dosing protocol. 7. Zosyn per pharmacy dosing protocol. PHYSICAL EXAMINATION: On exam most recent temperature is 98.3, blood pressure 169/106. Neurological Exam: She does not arouse immediately to voice, but as I examine her she starts to arouse and answer questions. Pupils respond equally from about 3-1/2 down to 2 mm. Eye movements are normal. She visually regards the examiner when she is awake. Speech is minimally dysarthric. Facial musculature is symmetric. She moves all her limbs purposely. Both legs are a little stiff. There is no asterixis or myoclonus. She knows that she is in the hospital. She does not know the day of the week or how many days she has been here. She currently denies headache or back pain. New laboratory data includes an elevated CPK from earlier this morning of 11, 708. IMPRESSION: Agitated delirium after apparently observed seizures in a patient with substance abuse problems. She has evidence of rhabdomyolysis on exam, which might explain her elevated white blood cell count and fever. She still needs imaging of her brain with MRI scanning and I still would like to get an MRI scan of her spine given her prior complaints of back pain and her history of drug use. I have discussed the case with Dr. Isabel and Nicole Beauchamp and will continue to follow. [id number]/[facility] #: [id number] MALENA
--- NOTE | 2019-10-20 19:28 | PN ---
Progress Note - Progress Note Date of Service: 10/20/19 Note: Patient initally presented to hospital with possible seizure like activity at home, and altered mental status. She's been vomiting and complaining of upper back pain for a few days as well. CTH grossly negative on admission but is a poor study. Upon admission to ICU, patient delirious, attempts to track but having difficulty answering questions. She does not follow commands. Her speech is garbled. She does move all extremities spontaneously. She is unable to provide any information. She is known to snort heroin, and takes her husbands gabapentin and suboxone. She is tachypneic but saturating well on oxymask. LP was attempted in ED and was unsuccessful. MRI brain with and without, MRI thoracic spine pending. EEG showed possible episodic foal slowing from the right frontal temporal region suggestive of possible focal neuronal dysfunction in the right frontotemporal region. She continued to be restless, agitated and unable to be redirected. She required 5mg haldol x 1 and was started on precedex drip. Differentials include: meningitis, brain abscess, herpes encephalitis, epidural abscess, drug overdose, drug withdrawal.
[2019-10-20] MEDS: Vancomycin(*) 1,000 MG in NS 0.9% 250 ML* 250 ML IV SCH (22:08)
[2019-10-21] MEDS: ZOSYN 3.375 GM Q8H per EXTENDED INFUSION IVPB SCH ×8 (00:40→23:34)
[2019-10-21] MEDS: levETIRAcetam IV* 750 MG in NS 0.9% 100 ML* 100 ML IVPB SCH ×2 (00:40→12:57)
[2019-10-21] MEDS: Dexmedetomidine* 1,000 MCG in NS 0.9% 250 ML* 240 ML IV SCH ×2 (02:19→10:56)
[2019-10-21 04:36] LABS: Hematocrit 49 % (35-47); Hemoglobin 16.7 g/dL (12.0-16.0); Mean Corpuscular HGB Conc 34 g/dL (31-36); Mean Corpuscular Hemoglobin 32 pg (27-31); Mean Corpuscular Volume 94 fL (80-97); Mean Platelet Volume 9.4 fL (7.4-10.4); Platelet Count 195 10^3/uL (150-450); Red Blood Count 5.25 10^6 /uL (3.70-4.87); Red Cell Distribution Width 13 % (10-15); White Blood Count 17.6 10^3/uL (3.5-10.8)
[2019-10-21 04:38] LABS: Calcium 8.4 mg/dL (8.6-10.3)
[2019-10-21 04:44] LABS: BUN/Creatinine Ratio 19.2 (8-20); EGFR African American 102.1 (>60); EGFR Non-African American 84.4 (>60)
[2019-10-21] MEDS: Vancomycin(*) 1,000 MG in NS 0.9% 250 ML* 250 ML IV SCH ×2 (06:21→16:04)
[2019-10-21] MEDS: Nicotine Patch Removal NOTE FOLLOW UP SCH (08:35)
[2019-10-21] MEDS: Nicotine PATCH 7 MG/24 HR* PATCH TRANSDERM SCH (08:36)
[2019-10-21] MEDS: Folic Acid TAB* 1 MG PO SCH (08:37)
[2019-10-21] MEDS: Multivitamins/Minerals TAB PO SCH (08:37)
[2019-10-21] MEDS: Thiamine TAB* 100 MG TAB PO SCH (08:37)
--- NOTE | 2019-10-21 12:04 | PN ---
Date of Service: 10/21/19 Critical Care Services: Ms. Henson states that she feels short of breath this morning. She denies other complaint including chest pain, nausea or abdominal pain. She notes that she has taken her 's gabapentin recently (a couple of doses per her) and has been taking suboxone. She states that she was feeling well yesterday. She denies any recent upper respiratory symptoms, fever, cough , SOB, or diarrhea. She denies recent sick contacts. She does not remember the events that led to her coming to the hospital but states that her " called." Vital Signs: Temp Pulse Resp BP SpO2 FiO2 97.6 F 70 36 150/94 91 10/21/19 10:10/21/19 10:00 10/21/19 10:00 10/21/19 10:10/21/19 10:00 Physical Exam: General: Alert but appears groggy, NAD HEENT: Normocephalic, atraumatic, non-icteric sclera, moist oral mucosa Neck: soft, supple, no JVD CV: Regular rate and rhythm, no murmurs or rubs Pulm/Chest: Increased work of breathing with tachypnea, good bilateral air entry , no rhonchi or rales, no wheeze Abdomen/GI: soft, non-tender, non-distended, +BS noted MSK/Skin: warm, dry, intact, +2 pulses, no edema or cyanosis Neuro: A&Ox3, no gross focal deficits Psych: Appropriate affect Fluid Balance (Past 24 Hours): Intake & Output 10/19/19 10/20/19 10/21/19 10/22/19 06:59 06:59 06:59 06:59 Intake Total 240 2658 Output Total 400 0 0 Balance -160 2658 0 Weight 190 lb 199 lb 8.293 oz Intake: IV Fluids 1867 NS (0.9%) 1558 vanco 223 zosyn 86 IVPB 492 Medicated IV 299 CC - Dexmedetomidine/ 299 Precedex Oral 240 0 Output: Urine 400 0 0 Other: Estimated Void Large Labs: Laboratory Results - last 24 hr 10/20/19 10/20/19 10/21/19 11:36 11:36 04:17 WBC RBC Hgb Hct MCV MCH MCHC RDW Plt Count MPV Sodium 137 Potassium TNP 4.0 Chloride 110 Carbon Dioxide 20 L Anion Gap 7 BUN 14 Creatinine 0.73 Est GFR ( Amer) 102.1 Est GFR (Non-Af Amer) 84.4 BUN/Creatinine Ratio 19.2 Glucose 127 H Calcium 8.4 L Ammonia TNP Total Creatine Kinase 4311 H 10/21/19 04:17 WBC 17.6 H RBC 5.25 H Hgb 16.7 H Hct 49 H MCV 94 MCH 32 H MCHC 34 RDW 13 Plt Count 195 MPV 9.4 Sodium Potassium Chloride Carbon Dioxide Anion Gap BUN Creatinine Est GFR ( Amer) Est GFR (Non-Af Amer) BUN/Creatinine Ratio Glucose Calcium Ammonia Total Creatine Kinase Studies: CT brain 10/19/19: IMPRESSION: No acute intracranial pathology. Chest xray 10/19/19: IMPRESSION: PATCHY ATELECTASIS VERSUS CONSOLIDATION OF THE RIGHT LUNG BASE. CT abd/pelvis 10/19/19: IMPRESSION: 1. There is mild wall thickening and possible wall edema involving the proximal duodenum, cannot exclude mild duodenitis. 2. There is colonic diverticulosis without evidence for acute diverticulitis. 3. No acute traumatic CT pathology of the abdomen or pelvis. Thoracic spine CT 10/19/19: IMPRESSION: No acute thoracic spine fracture or other acute pathology. EEG 10/20/19: CLINICAL IMPRESSION: Abnormal EEG due to excessive beta rhythms consistent with benzodiazepine drug effect. In addition, there is diffuse slowing and disorganization of background rhythm consistent with diffuse encephalopathy. There is suggestion of episodic focal slowing from the left frontal temporal region suggestive of possible focal neuronal dysfunction in the left frontotemporal region. There are no ictal events and no epileptiform features to this recording. Chest xray 10/20/19: IMPRESSION: SCATTERED AREAS OF AIRSPACE DISEASE IN THE RIGHT BASE MAY REPRESENT ATELECTASIS VERSUS EARLY PNEUMONIA AND IS UNCHANGED FROM OCTOBER 19, 2019. Chest xray 10/21/19: IMPRESSION: BIBASILAR AIRSPACE DISEASE, LIKELY REPRESENTING ATELECTASIS. Impression: Ms. Henson is a 49 yo F with a PMH of smoking, substance abuse who was admitted on 10/20/19 with concern for seizure or overdose with reported use of gabapentin and suboxone, now with concern for tachypnea. Diagnoses: * Seizure * Tachypnea with acute hypoxic respiratory failure * Suspected overdose of gabapentin and/or suboxone * Rhabdomyolysis Plan: Neuro: - Alert, somewhat groggy but oriented x 3 - Suspect related to overdose, potentially related to reported seizure - CT brain negative - Continue keppra - Avoid benzos or sedatives - No evidence of withdrawal CVS: - Hemodynamically stable Resp: - Tachypneic and mildly hypoxic despite normal chest xray, acute hypoxic respiratory failure, improving - Plan to check CTA chest to rule out PE and echo - Smoker but no documented history of COPD, plan to add solumedrol and albuterol nebulizers - Some wheezing noted this afternoon, suspect mild volume overload, place rodriguez and lasix x 1 - ? ingestion with metabolic acidosis driving tachypnea but no evidence based on normal serum bicarb and normal anion gap - Wean Fio2 to keep sat > 92% ID: - SIRS on arrival, likely related to seizure and overdose - Cxray negative, UA pending, BC NGTD. No evidence of meningitis. - Did have N/V prior to development of seizure like activity. ? mild duodenitis. - Has new back pain which she attributes to lying in bed, MRI spine pending. - Continue vanco and zosyn while work up continues GI: - Report of N/V for several days prior to arrival, CT abd with finding of mild duodenitis only - Nutrition, clear liquid - GI prophylaxis with protonix Renal: - Incontinent and unable to tolerate the surewick, place rodriguez for close monitoring of I/Os - Creatinine normal Heme: - Heme-concentrated - Continue NS Endo: - BG normal, no hx of diabetes Musculoskeletal/Skin: - pressure ulcer prophylaxis. Wounds: - none Nutrition: DVT prophylaxis: Heparin SQ Disposition: Patient requires critical care/ICU for overdose, respiratory distress Patient Clinical Status: Critical Code Status: Full Code Total Critical Care time is 60 minutes, excluding procedures/teaching
[2019-10-21] MEDS ORDERED: Vancomycin Trough Check NOTE FOLLOW UP ONE (14:00)
[2019-10-21] MEDS: Heparin VIAL(*) 5000 UNITS/ML VIAL (FIVE THOUSAND) SUBCUT SCH ×2 (14:41→22:31)
[2019-10-21] MEDS: Pantoprazole TAB * 40 MG TAB PO SCH (14:41)
[2019-10-21] MEDS ORDERED: Furosemide IV* 10 MG/ML 2 ML VIAL (20 MG) IV ONE (14:45)
--- NOTE | 2019-10-21 14:50 | ECHO ---
*[facility]* [place] [address] Fax #: [phone] Transthoracic Echocardiogram Patient: Tina Henson : 1970 Study Date: 10/21/2019 Age: 49 Gender: F HR: 72 bpm Height: 66 in /167.6 cm BSA: 2 m^2 Weight: 198.6 lb /90.3 kg BMI: 32.1 kg/m^2 *[employer]: Sandra Alexandre *Referring Physician: * Rob IsabelReading Physician: * Esau Estrada MD Indications: SOB. History: Risk factors: Polysubstance abuse. Current tobacco use. Hypertension. Conclusions Summary: - Left ventricle: Systolic function is normal. The estimated ejection fraction is 60-65%. - No significant valvular disease. Study data: Transthoracic echocardiogram. Procedure: Transthoracic echocardiography was performed. Image quality was good. Complete 2D, spectral Doppler, and color flow Doppler. Location: ICU Patient status: Inpatient. Patient room number: 2. No prior study is available for comparison. Rhythm: Normal sinus rhythm. Findings Left ventricle: The cavity size is normal. Wall thickness is normal. Systolic function is normal. The estimated ejection fraction is 60-65%. Wall motion is normal; there are no regional wall motion abnormalities. Left ventricular diastolic function parameters are normal. Right ventricle: The cavity size is normal. Systolic function is normal. Left atrium: The atrium is normal in size. Right atrium: The atrium is normal in size. Atrial septum: No defect or patent foramen ovale is identified. Mitral valve: The valve is structurally normal. There is no evidence of stenosis. There is no significant regurgitation. Aortic valve: Not well visualized. The valve is probably trileaflet. There is no evidence of stenosis. There is no significant regurgitation. Tricuspid valve: The valve is structurally normal. There is no evidence of stenosis. There is no significant regurgitation. Pulmonic valve: The valve is structurally normal. There is no evidence of stenosis. There is no significant regurgitation. Aorta: The aortic root appears normal. The aortic arch appears normal. Pericardium: There is no significant pericardial effusion. Pulmonary arteries: Systolic pressure can not be accurately estimated. Systemic veins: Inferior vena cava: The vessel is normal in size. There is (>= 50%) respiratory change in the IVC dimension. Pulmonary veins: Not well visualized. Measurements Left ventricle Value Ref Aortic valve Value Ref SASKIA, LAX 4.6 cm 3.8 - 5.2 Peak v, S 0.87 m/sec ---- ESD, LAX 3.2 cm 2.2 - 3.5 VTI, S 25.0 cm ---- FS, LAX 30 % 27 - 45 Mean grad, S 4.0 mm Hg ---- PW, ED, LAX 0.9 cm 0.6 - 0.9 Peak grad, S 3.0 mm Hg ---- E', lat brannon, TDI 14.3 cm/sec >=10.0 SIMIN, VTI 2.73 cm^2 ---- E/e', lat brannon, 6 SIMIN, Vmax 3.63 cm^2 ---- TDI Mitral valve Value Ref LVOT Value Ref Peak E 0.87 m/sec ---- Diam, S 2.00 cm Peak A 0.64 m/sec ---- Area 3.1 cm^2 Decel time 201 ms ---- Peak ariana, S 1 m/sec Peak grad, D 3.0 mm Hg ---- Mean grad, S 2 mm Hg Peak E/A ratio 1.4 ---- SV 72 ml Pulmonic valve Value Ref Ventricular septum Value Ref Peak v, S 0.62 m/sec ---- IVS, ED 0.9 cm 0.6 - 0.9 Peak grad, S 2.0 mm Hg ---- Right ventricle Value Ref Aortic root Value Ref SASKIA, LAX 2.6 cm Root diam 3.1 cm <4.1 SASKIA minor ax, 3.3 cm 1.9 - 3.5 A4C mid Ascending aorta Value Ref AAo AP diam, S 3.1 cm ---- Left atrium Value Ref AP dim, ES 3.30 cm 2.70 - Aortic arch Value Ref 3.80 Arch diam 2.0 cm ---- ML dim, A4C 2.8 cm SI dim, A4C 4.1 cm Decending aorta Value Ref Vol/bsa, ES, 1-p 12 ml/m^2 11 - 40 Silvia peak ariana 0.95 m/sec ---- A4C Inferior vena cava Value Ref Right atrium Value Ref Diam 2.1 cm ---- SI dim, ES 3.4 cm 3.4 - 5.3 ML dim, ES, A4C 4.3 cm 2.6 - 4.4 SI dim, ES, A4C 3.4 cm 3.4 - 5.3 Legend: (L) and (H) gloria values outside specified reference range. Prepared and electronically signed by Esau Estrada MD 10/21/2019 14:46
[2019-10-21] MEDS ORDERED: Albuterol 2.5 MG/3 ML NEB.SOL* (0.083%) INH PRN (15:19)
--- NOTE | 2019-10-21 15:30 | PN ---
NEUROLOGY FOLLOWUP NOTE: DATE OF FOLLOWUP: 10/21/19 HOSPITALIST: Nelda Busby NP LOCATION: She is in the ICU bed 2. CHIEF COMPLAINT: Seizure, encephalopathy. INTERVAL HISTORY: Since yesterday, Tina is alert. She does not have a headache today. She still has some interscapular back pain, but it is not bad. She does not notice any numbness in her legs. Currently, she is having shortness of breath and that is being evaluated. MEDICATIONS: Reviewed and she is on: 1. Levetiracetam 750 mg IV q.12 hours. 2. Folic acid 1 mg p.o. daily. 3. Protonix 40 mg p.o. daily. 4. Vancomycin dosed by pharmacy. 5. Zosyn dosed by pharmacy. 6. Vancomycin 1000 mg IV q.8 hours. PHYSICAL EXAMINATION: On exam, she is tachypneic, but alert and conversant. Last blood pressure in the record 146/100, temperature 98.3 by temporal scan. Speech is clear. Eye movements are full. Facial musculature is symmetric. DIAGNOSTIC STUDIES/LAB DATA: Laboratory data is notable for a CPK down to 4311 this morning, renal function appears normal. Calcium is borderline low at 8.4. CBC is notable for an elevated white blood cell count at 17.6 which is down from 22 yesterday. Hemoglobin is down a little bit to 16.7, but remains high. Blood cultures are negative after 2 days. IMPRESSION: Impression is that of seizures in the setting of substance abuse. She still needs an MRI of her brain at some point, but it is not urgent. Currently, her pulmonary status is a priority. I do not think she needs an MRI of her thoracic spine at this point, as if she had an epidural abscess, I would not expect her to be doing so well in terms of neurological function. I will change her Keppra to oral formulation at 500 mg twice per day. I will continue to follow her along with you. [id number]/[facility] #: [id number] [facility]
[2019-10-21] MEDS ORDERED: Morphine INJ* 4 MG/ML 1 ML SYRINGE (NEW SYRINGE VERSION) IV PRN (16:02)
[2019-10-21] MEDS ORDERED: Iohexol 350* (CONTRAST) 500 ML MDV IV ONE (17:16)
[2019-10-21] MEDS: methylPREDNISolone 125 MG* 2 ML VIAL IV SCH ×2 (17:54→23:34)
[2019-10-21] MEDS ORDERED: Vancomycin per Pharmacy* NOTE FOLLOW UP SCH (18:00)
[2019-10-21 18:38] LABS: Urine Appearance Cloudy; Urine Bilirubin Negative (Negative); Urine Blood 1+ (Negative); Urine Color Yellow; Urine Glucose Negative (Negative); Urine Ketones 1+ (Negative); Urine Nitrite Negative (Negative); Urine Protein Negative (Negative); Urine Specific Gravity 1.027 (1.010-1.030); Urine Urobilinogen Negative (Negative)
[2019-10-21 18:44] LABS: Urine Bacteria Absent (Absent); Urine Red Blood Cell Absent (Absent); Urine White Blood Cell Absent (Absent)
[2019-10-21] MEDS: levETIRAcetam TAB* 500 MG PO SCH (20:17)
[2019-10-21] MEDS ORDERED: Dexmedetomidine* 1,000 MCG in NS 0.9% 250 ML* 240 ML IV SCH (22:00)
[2019-10-21] MEDS: Morphine INJ* 4 MG/ML 1 ML SYRINGE (NEW SYRINGE VERSION) IV PRN (22:31)
[2019-10-22] MEDS ORDERED: Melatonin 3 MG TAB PO ONE (00:31)
[2019-10-22] MEDS: Morphine INJ* 4 MG/ML 1 ML SYRINGE (NEW SYRINGE VERSION) IV PRN ×4 (00:33→08:29)
[2019-10-22] MEDS ORDERED: Melatonin 3 MG TAB PO PRN (01:35)
[2019-10-22 04:47] LABS: Hematocrit 45 % (35-47); Hemoglobin 15.7 g/dL (12.0-16.0); Mean Corpuscular HGB Conc 35 g/dL (31-36); Mean Corpuscular Hemoglobin 32 pg (27-31); Mean Corpuscular Volume 91 fL (80-97); Mean Platelet Volume 9.5 fL (7.4-10.4); Platelet Count 226 10^3/uL (150-450); Red Blood Count 4.96 10^6 /uL (3.70-4.87); Red Cell Distribution Width 13 % (10-15); White Blood Count 14.3 10^3/uL (3.5-10.8)
[2019-10-22 04:58] LABS: BUN/Creatinine Ratio 21.3 (8-20); Calcium 8.7 mg/dL (8.6-10.3); EGFR African American 91.9 (>60); EGFR Non-African American 75.9 (>60); Potassium 3.8 mmol/L (3.5-5.0)
[2019-10-22] MEDS: Nicotine Patch Removal NOTE FOLLOW UP SCH (05:59)
[2019-10-22] MEDS: Heparin VIAL(*) 5000 UNITS/ML VIAL (FIVE THOUSAND) SUBCUT SCH (06:12)
[2019-10-22] MEDS: Folic Acid TAB* 1 MG PO SCH (07:52)
[2019-10-22] MEDS: ZOSYN 3.375 GM Q8H per EXTENDED INFUSION IVPB SCH ×2 (07:52)
[2019-10-22] MEDS: levETIRAcetam TAB* 500 MG PO SCH (07:52)
[2019-10-22] MEDS: methylPREDNISolone 125 MG* 2 ML VIAL IV SCH (07:52)
[2019-10-22] MEDS: Thiamine TAB* 100 MG TAB PO SCH (07:53)
[2019-10-22] MEDS: Pantoprazole TAB * 40 MG TAB PO SCH (07:53)
[2019-10-22] MEDS: Multivitamins/Minerals TAB PO SCH (07:53)
[2019-10-22] MEDS: Nicotine PATCH 7 MG/24 HR* PATCH TRANSDERM SCH (08:29)
--- NOTE | 2019-10-22 08:38 | PN ---
Date of Service: 10/22/19 Critical Care Services: Ms. Henson states that she is feeling much better this morning. Her shortness of breath is much improved. She denies chest pain. She denies nausea, vomiting or abdominal pain and is eager to eat breakfast. She continues to have back pain. She is not sure when this started, likely a couple of days ago. She notes having seizure like activity a couple of days before admission. Though EMS was called at that time by her , she refused transport. She suspects that her back pain began then. Her pain has been well-controlled on morphine. She does have a history of substance abuse, was using suboxone (not prescribed) outpatient (as well as other substances). Vital Signs: Temp Pulse Resp BP SpO2 FiO2 99.6 F 84 22 163/94 95 10/22/19 07:21 10/22/19 08:00 10/22/19 08:29 10/22/19 08:00 10/22/19 08:00 Physical Exam: General: Alert, NAD HEENT: Normocephalic, atraumatic, non-icteric sclera, moist oral mucosa Neck: soft, supple, no JVD CV: Regular rate and rhythm, no murmurs or rubs Pulm/Chest: Good bilateral air entry, no rhonchi or rales, no wheeze Abdomen/GI: soft, nontender, nondistended, +BS noted MSK/Skin: warm, dry, intact, +2 pulses+, no edema or cyanosis Neuro: A&Ox3, no gross focal deficits Psych: Appropriate affect Fluid Balance (Past 24 Hours): Intake & Output 10/20/19 10/21/19 10/22/19 10/23/19 06:59 06:59 06:59 06:59 Intake Total 240 2658 2273 Output Total 400 0 1025 85 Balance -160 2658 1248 -85 Weight 190 lb 199 lb 8.293 oz 203 lb 0.732 oz Intake: IV Fluids 1867 1287 NS (0.9%) 1558 1287 vanco 223 zosyn 86 IVPB 492 Medicated IV 299 461 CC - Dexmedetomidine/ 299 461 Precedex Oral 240 0 525 Output: Urine 400 0 0 Rodriguez 1025 85 Other: Estimated Void Large Labs: Laboratory Results - last 24 hr 10/20/19 10/21/1910/21/20 08:59 14:45 04:35 WBC 14.3 H RBC 4.96 H Hgb 15.7 Hct 45 MCV 91 MCH 32 H MCHC 35 RDW 13 Plt Count 226 MPV 9.5 Sodium Potassium Chloride Carbon Dioxide Anion Gap BUN Creatinine Est GFR ( Amer) Est GFR (Non-Af Amer) BUN/Creatinine Ratio Glucose Calcium Total Creatine Kinase Urine Color Yellow Urine Appearance Cloudy Urine pH 5.0 Ur Specific [place] 1.027 Urine Protein Negative Urine Ketones 1+ A Urine Blood 1+ A Urine Nitrate Negative Urine Bilirubin Negative Urine Urobilinogen Negative Ur Leukocyte Esterase Negative Urine WBC (Auto) Absent Urine RBC (Auto) Absent Urine Bacteria Absent Urine Glucose Negative Gabapentin 0.7 L 10/22/19 04:35 WBC RBC Hgb Hct MCV MCH MCHC RDW Plt Count MPV Sodium 136 Potassium 3.8 Chloride 103 Carbon Dioxide 22 Anion Gap 11 BUN 17 Creatinine 0.80 Est GFR ( Amer) 91.9 Est GFR (Non-Af Amer) 75.9 BUN/Creatinine Ratio 21.3 H Glucose 158 H Calcium 8.7 Total Creatine Kinase 2747 H Urine Color Urine Appearance Urine pH Ur Specific [place] Urine Protein Urine Ketones Urine Blood Urine Nitrate Urine Bilirubin Urine Urobilinogen Ur Leukocyte Esterase Urine WBC (Auto) Urine RBC (Auto) Urine Bacteria Urine Glucose Gabapentin Studies: [address] brain 10/19/19: IMPRESSION: No acute intracranial pathology. Chest xray 10/19/19: IMPRESSION: PATCHY ATELECTASIS VERSUS CONSOLIDATION OF THE RIGHT LUNG BASE. CT abd/pelvis 10/19/19: IMPRESSION: 1. There is mild wall thickening and possible wall edema involving the proximal duodenum, cannot exclude mild duodenitis. 2. There is colonic diverticulosis without evidence for acute diverticulitis. 3. No acute traumatic CT pathology of the abdomen or pelvis. Thoracic spine CT 10/19/19: IMPRESSION: No acute thoracic spine fracture or other acute pathology. EEG 10/20/19: CLINICAL IMPRESSION: Abnormal EEG due to excessive beta rhythms consistent with benzodiazepine drug effect. In addition, there is diffuse slowing and disorganization of background rhythm consistent with diffuse encephalopathy. There is suggestion of episodic focal slowing from the left frontal temporal region suggestive of possible focal neuronal dysfunction in the left frontotemporal region. There are no ictal events and no epileptiform features to this recording. Chest xray 10/20/19: IMPRESSION: SCATTERED AREAS OF AIRSPACE DISEASE IN THE RIGHT BASE MAY REPRESENT ATELECTASIS VERSUS EARLY PNEUMONIA AND IS UNCHANGED FROM OCTOBER 19, 2019. Chest xray 10/21/19: IMPRESSION: BIBASILAR AIRSPACE DISEASE, LIKELY REPRESENTING ATELECTASIS. CTA Chest 10/21/19:IMPRESSION: 1. No pulmonary embolus is detected. 2. T5 and T6 compression fractures result and 50% and 10% vertebral body height loss respectively. The acuity of these findings is suggested by inferior endplate trabecular bone "impaction". 3. Mild emphysema. Impression: Ms. Henson is a 49 yo F with a PMH of smoking, substance abuse who was admitted on 10/20/19 with concern for seizure or overdose with reported use of gabapentin and suboxone, now with concern for tachypnea. Diagnoses: * Seizure * Tachypnea with acute hypoxic respiratory failure, resolved, suspected due to combination of fluid overload, COPD exacerbation, and back pain * Suspected overdose of gabapentin and/or suboxone * Rhabdomyolysis Plan: Neuro: - Alert oriented x 3, AMS related to overdose and seizure - CT brain negative - Continue keppra oral - Will need follow up Dr Cole outpatient for MRI brain Pain and Substance Abuse Hx: - Plan to discharge to home on suboxone - Follow up [facility]: - Hemodynamically stable Resp: - Tachypnea and hypoxia resolved - Suspect combination of poor inspiratory effort and atelectasis due to back pain with new compression fractures, COPD with smoking hx, of mild volume overload with fluids given for rhabdomyolysis - CTA chest negative - Smoker but no documented history of COPD, switch to prednisone for quick taper - Ambulate ID: - SIRS on arrival, likely related to seizure and overdose - Cxray negative, UA negative, BC NGTD. No evidence of meningitis. - Did have N/V prior to development of seizure like activity. ? mild duodenitis. - Has new back pain which she attributes to lying in bed, compression fractures noted, BC negative, MRI cancelled - Stop abx GI: - Report of N/V for several days prior to arrival, CT abd with finding of mild duodenitis only - Nutrition, advance diet Renal: - Remove rodriguez, creatinine normal - Encourage fluid intake, for mildly elevated CK (greatly improved) Heme: - Heme-concentrated - Continue NS Endo: - BG normal, no hx of diabetes Musculoskeletal/Skin: - pressure ulcer prophylaxis. Wounds: - none Nutrition: DVT prophylaxis: Heparin SQ Disposition: Discharge to home, pending completion of discharge planning Patient Clinical Status: Improved, stable Code Status: Full Code Total Critical Care time is 40 minutes, excluding procedures/teaching
[2019-10-22 11:02] VITALS: BP 149/93
--- NOTE | 2019-10-22 12:13 | DS ---
HOSPITAL MEDICINE DISCHARGE SUMMARY: DATE OF ADMISSION: 10/20/19 DATE OF DISCHARGE: 10/22/19 PRIMARY CARE PHYSICIAN: Dr. Jaime. ATTENDING PHYSICIAN: Dr. Rob Isabel * (dictation provided by Nelda Busby NP). PRIMARY DIAGNOSES: 1. New-onset seizure. 2. Substance abuse disorder. 3. Rhabdomyolysis. 4. Acute hypoxic respiratory failure, resolved. 5. Chronic obstructive pulmonary disease. SECONDARY DIAGNOSES: 1. History of smoking. 2. Anxiety. MEDICATIONS AT THE TIME OF DISCHARGE: 1. Suboxone 8/2 b.i.d. (new prescription). 2. Prednisone 40 mg x5 days (new prescription). 3. Keppra 500 mg p.o. b.i.d. (new prescription). 4. Albuterol inhaler 1 to 2 puffs q.4 hours p.r.n. shortness of breath/ wheezing (new prescription). HOSPITAL COURSE: Ms. Henson is a 49-year-old female with a past medical history of anxiety and substance abuse disorder as well as smoking, who presents to the hospital on 10/19/19 with concern for a new-onset seizure. Please see the dictated H and P from Dr. Carson for complete details. In brief , the patient's noted that the patient was having seizure-like movements. She has no history of seizure. The patient stated in the days leading up to this that she had had nausea and vomiting and been mostly staying in bed. She had had an episode of apparent seizure approximately 2 days prior to admission. The had called EMS, but the patient had refused transfer. On the day of arrival to the ED, the patient had been described to be unresponsive, "not breathing, her face was turning black; she was diaphoretic , foaming at the mouth and her muscles would get extremely tense and he could not break her muscle tension." The patient reported that she had been taking her 's gabapentin and Suboxone for back pain. There is also question of potential other opiate abuse. The patient's toxicology screen came back positive for cannabinoids and opiates. The patient had no nuchal rigidity, no Brudzinski sign, no Kernig sign. In the emergency room, the patient had CT brain, which was read as follows: " No acute intracranial pathology." The patient had abdomen and pelvis CT out of concern for nausea, vomiting, and questionable abdominal pain. It was read as follows: "There is mild wall thickening and possible wall edema involving the proximal duodenum, cannot exclude mild duodenitis. There is chronic diverticulosis without evidence for acute diverticulitis. No acute traumatic CT pathology of the abdomen or pelvis." She had a chest x-ray which showed, "patchy atelectasis versus consolidation of the right lung base." For her back pain, she had a thoracic spine CT, which showed, "no acute thoracic spine fracture acute pathology." Her labs at the time of arrival showed white blood cell count of 24.8 with a hemoglobin of 17.2 and hematocrit of 50. She had a rhabdomyolysis with a CK of 11,708. BUN and creatinine were normal. Her troponin was normal. Her CRP was normal. Her prolactin was normal. The patient was admitted to the intensive care unit because of her new-onset seizure. She had an EEG, which showed the following: "Abnormal EEG due to excessive beta rhythms consistent with benzodiazepine drug effect. In addition , there is diffuse slowing and disorganization of background rhythm consistent with diffuse encephalopathy. There is suggestion of episodic focal slowing from the left frontotemporal region suggestive of possible focal neuronal dysfunction in the left frontotemporal region. There are no ictal events and no epileptiform features to this recording." Also, for new-onset seizure, the patient was seen in consultation by Dr. Cole. He started the patient on Keppra IV and this has now been transitioned to Keppra orally. He initially recommended MRI of the brain, but ultimately has decided this can be followed up outpatient. On admission, the patient was noted to be tachypneic. This continued during the first day in the ICU. She was also mildly hypoxic requiring 2 to 4 L of nasal cannula. Her chest x-ray was clear. She has a history of smoking and there was suspicion that perhaps some of these symptomatology and acute respiratory failure was related to COPD. She was given Solu-Medrol for this. There was also suspicion that she had mild fluid overload related to fluid hydration given her rhabdomyolysis and she was given a diuretic. Further workup for her hypoxia and tachypnea included a transthoracic echocardiogram, which showed no wall motion or valvular abnormalities and an intact ejection fraction. She had a chest CTA to rule out PE. It showed no PE, but did show T5 and T6 compression fractures resulting in 50% and 10% vertebral body height loss respectively and acuity of these findings are suggested by inferior endplate trabecular bone impaction. Ms. Henson is feeling much better today. She is satting 90% or greater without oxygen. She is ambulating on the unit independently. Her white blood cell count is now 14. Her CK is down to 2000. Again, her BUN and creatinine remain normal. She is no longer tachypneic. Her blood pressure is stable. Her blood cultures have remained negative. Her urinalysis is negative. Ms. Henson is medically stable for discharge to home. She will be following up with Dr. Cole regarding new-onset seizure and for MRI brain. In terms of her pain and history of substance abuse, she has been started on Suboxone and has been provided with information about both [facility] and the [facility]. I strongly encouraged her to follow up with one of these organizations regarding continuation of Suboxone and support with pain. She has been given a short course of prednisone, for potential COPD exacerbation. Ms. Henson is medically stable for discharge to home. DISPOSITION: To home. DIET: Regular. ACTIVITY: As tolerated. FOLLOWUP PLANS: 1. Please follow up with Dr. Cole regarding new-onset seizures and MRI brain. 2. Please follow up with [facility] [facility] or [facility] for continuation of Suboxone. 3. Please follow up with Dr. Jaime regarding this acute inpatient hospitalization. The patient was strongly encouraged to return to the emergency room should she have shortness of breath or any other concerning symptom. TIME SPENT: Approximately 60 minutes was spent on the discharge of this patient , more than half that time was spent with the patient at the bedside, reviewing the events leading up to and during this hospitalization and reviewing the plan of care. NELDA BUSBY, STEVEN [id number]/[facility] #: [id number] [facility]
== END 2019-10-22 12:07 | disposition home or self-care (01) | DRG 100 ==
LOC: ED 15:49 → SSU 22:01 → ICU 10-20 10:35 → OBSVTOIN 10-20 11:00
PROVIDERS: ADMIT Nurse Practitioner Family; ATTEND Internal Medicine Critical Care Medicine
PROC: 00JU3ZZ Inspection of Spinal Canal, Percutaneous Approach (ICD-10-PCS; principal; 2019-10-19)
DX: G40.509 Epileptic seizures related to external causes, not intractable, without status epilepticus (principal); J96.01 Acute respiratory failure with hypoxia; G93.40 Encephalopathy, unspecified; M62.82 Rhabdomyolysis; R65.10 Systemic inflammatory response syndrome (SIRS) of non-infectious origin without acute organ dysfunction; J44.1 Chronic obstructive pulmonary disease with (acute) exacerbation; J98.11 Atelectasis; M48.54XA Collapsed vertebra, not elsewhere classified, thoracic region, initial encounter for fracture; T42.6X1A Poisoning by other antiepileptic and sedative-hypnotic drugs, accidental (unintentional), initial encounter; T40.4X1A Poisoning by other synthetic narcotics, accidental (unintentional), initial encounter; T42.6X5A Adverse effect of other antiepileptic and sedative-hypnotic drugs, initial encounter; F41.9 Anxiety disorder, unspecified; D72.829 Elevated white blood cell count, unspecified; K57.30 Diverticulosis of large intestine without perforation or abscess without bleeding; E87.70 Fluid overload, unspecified; F17.210 Nicotine dependence, cigarettes, uncomplicated; M54.9 Dorsalgia, unspecified; F19.10 Other psychoactive substance abuse, uncomplicated; R41.0 Disorientation, unspecified; R32 Unspecified urinary incontinence; K29.80 Duodenitis without bleeding; F11.10 Opioid abuse, uncomplicated; F10.10 Alcohol abuse, uncomplicated; Y92.009 Unspecified place in unspecified non-institutional (private) residence as the place of occurrence of the external cause; Z82.49 Family history of ischemic heart disease and other diseases of the circulatory system; Z83.3 Family history of diabetes mellitus; Z82.5 Family history of asthma and other chronic lower respiratory diseases
CPT/HCPCS: 36415; 70450; 71045; 71275; 72129; 74177; 80048; 80053; 80171; 80307; 80320; 80329; 81003; 81015; 82550; 82607; 82746; 83605; 83690; 83735; 84146; 84484; 85025; 85027; 85610; 86140; 87040; 93005; 93306; 95819; 96365; 96367; 96375; 99285; A9270-GY; G0480; J0290; J0696; J1170; J1630; J1644; J1940; J1953; J2060; J2270; J2405; J2543; J2930; J3010; J3370; Q9967

== ENCOUNTER 2024-08-01 06:08 | Inpatient (IN) ==
[~2024-08-01 06:08] MED LIST: Ertapenem 1 GM in NS 0.9% 50 ML BAG IVPB SCH; NS 0.45% 1000 ml BAG 1,000 ML IV SCH; Naloxone 0.4 mg VIAL 0.4 mg/ml 1 ml VIAL IV PRN
[2024-08-01] MEDS: Buffered Lidocaine 1% SYRIN 1 ml INTRADERM ONE (06:43)
[2024-08-01] MEDS ORDERED: Scopolamine 1 mg/72hr PATCH ONE (06:46)
[2024-08-01] MEDS ORDERED: Famotidine IV 10 MG/ML 2 ml VIAL (20 mg) ONE (06:47)
[2024-08-01] MEDS ORDERED: Bupivacaine 0.25% EPI 200,000 30 ML SDV ONE (06:49)
[2024-08-01] MEDS ORDERED: Lidocaine 1% VIAL 10 MG/ML 30 ML VIAL ONE (06:49)
[2024-08-01] MEDS: Scopolamine 1 mg/72hr PATCH TRANSDERM ONE (06:50)
[2024-08-01] MEDS: Famotidine IV 10 MG/ML 2 ml VIAL (20 mg) IV SLOW PU ONE (06:51)
[2024-08-01] MEDS: Lactated Ringers 1000 ml BAG 1,000 ML IV SCH (06:51)
[2024-08-01 06:54] LABS: Rapid COVID-19 Molecular Undetected (Undetected)
[2024-08-01] MEDS ORDERED: Acetaminophen IV 1 GM/100ML 1,000 MG/100 ML BAG IV ONE (06:55)
[2024-08-01] MEDS: Acetaminophen IV 1 GM/100ML 1,000 MG/100 ML BAG IV ONE (06:56)
[2024-08-01] MEDS ORDERED: Rocuronium 50 mg VIAL 10 mg/ml 5 ml VIAL (50 mg) ONE ×3 (07:03→10:11)
[2024-08-01] MEDS ORDERED: Propofol 10 MG/ML 20 ML BTL ONE (07:03)
[2024-08-01] MEDS ORDERED: Dexamethasone IV 4 MG/ML VIAL 1 ml VIAL ONE (07:03)
[2024-08-01] MEDS ORDERED: Midazolam 2 mg/2 ml VIAL 1 mg/ml 2 ml VIAL (2 mg) ONE (07:03)
[2024-08-01] MEDS ORDERED: Ondansetron 4 mg VIAL 2 MG/ML 2 ml VIAL ONE ×2 (07:03→11:25)
[2024-08-01] MEDS ORDERED: fentaNYL 250 mcg/5 ml 50 MCG/ML 5 ml VIAL (250 MCG) ONE (07:03)
[2024-08-01] MEDS ORDERED: Lidocaine 2% PF 5 ML VIAL ONE (07:03)
[2024-08-01] MEDS ORDERED: Metoclopramide 5 MG/ML VIAL (10 mg) ONE (07:08)
[2024-08-01] MEDS: Metoclopramide 5 MG/ML VIAL (10 mg) IV PRN (07:10)
[2024-08-01] MEDS ORDERED: Heparin 5000 UNITS/ML 1 mL VIAL ONE (07:19)
[2024-08-01] MEDS ORDERED: KETAMINE HCL 10 MG/ML 20 ml VIAL (200 MG) ONE (08:01)
[2024-08-01] MEDS ORDERED: Levalbuterol HFA INHALER MDI ONE (08:18)
[2024-08-01] MEDS ORDERED: HYDROmorphone 0.5 MG/0.5 ML SYRINGE ONE (10:12)
[2024-08-01] MEDS ORDERED: Ondansetron 4 mg VIAL 2 MG/ML 2 ml VIAL IV PRN (10:49)
[2024-08-01] MEDS ORDERED: fentaNYL 100 mcg/2 ml 50 MCG/ML VIAL ONE ×2 (10:49→11:12)
[2024-08-01] MEDS ORDERED: HYDROmorphone 1 MG/1 ML SYRINGE IV SLOW PU PRN (10:49)
[2024-08-01] MEDS: fentaNYL 100 mcg/2 ml 50 MCG/ML VIAL IV PRN (10:55)
[2024-08-01] MEDS: Ondansetron 4 mg VIAL 2 MG/ML 2 ml VIAL IV PRN (11:26)
[2024-08-01] MEDS ORDERED: HYDROmorphone 1 MG/1 ML SYRINGE ONE (12:46)
[2024-08-01] MEDS: HYDROmorphone 1 MG/1 ML SYRINGE IV PRN (12:47)
[2024-08-01] MEDS ORDERED: Naloxone 0.4 mg VIAL 0.4 mg/ml 1 ml VIAL IV PUSH PRN ×2 (13:53→14:10)
[2024-08-01] MEDS ORDERED: HYDROmorphone PCA 20 MG/20 ML PCA.SYRING PCA SCH (15:00)
[2024-08-01] MEDS: D5W 1/2 NS 40 Meq KCL 1000 ml 1,000 ML IV SCH (15:55)
[2024-08-01] MEDS: Acetaminophen IV 1 GM/100ML 1,000 MG/100 ML BAG IV SCH (16:23)
[2024-08-01] MEDS ORDERED: HYDROmorphone 0.5 MG/0.5 ML SYRINGE IV SLOW PU PRN (17:35)
[2024-08-01] MEDS: HYDROmorphone PCA *HIGH DOSE* 100 MG/20 ML PCA.SYRING PCA SCH (17:43)
[2024-08-01] MEDS: HYDROmorphone 1 MG/1 ML SYRINGE IV SLOW PU PRN (21:36)
[2024-08-02 06:25] LABS: Hematocrit 42.1 % (35-45); Hemoglobin 13.9 g/dL (11.5-14.3); Mean Corpuscular Hemoglobin 31.2 pg (27-33); Mean Corpuscular Hgb Conc 33.1 g/dL (31-36); Mean Corpuscular Volume 94.5 fL (80-97); Mean Platelet Volume 9.5 fL (7.5-11.2); Platelet Count 221 10^3/uL (150-450); Red Blood Count 4.46 10^6/uL (3.63-4.92); White Blood Count 15.1 10^3/uL (3.8-11.8)
[2024-08-02 06:41] LABS: Albumin 3.6 g/dL (3.5-5.7); Albumin/Globulin Ratio 1.6 (1-3); Calcium 8.6 mg/dL (8.6-10.3); Creatinine, Serum 0.81 mg/dL (0.51-0.95); Globulin 2.2 g/dL (2-4); Potassium 4.3 mmol/L (3.5-5.0); Total Bilirubin 0.7 mg/dL (0.2-1.0); Total Protein 5.8 g/dL (6.4-8.9); eGFR CKD-EPI 85.7 (>60)
[2024-08-02 07:22] LABS: ABS Basophils 0.1 10^3/uL (0.0-0.1); ABS Eosinophils 0.1 10^3/uL (0.0-0.5); ABS Monocytes 1.7 10^3/uL (0.0-0.9); ABS Neutrophils 10.2 10^3/uL (1.5-7.6); Eosinophil % 0.4 %; Lymphocyte % 20.2 %
[2024-08-02] MEDS: Enoxaparin 40 MG/0.4 ML SYR SUBCUT SCH (07:32)
[2024-08-02] MEDS ORDERED: Albuterol HFA INHALER 8 gm MDI INH PRN ×2 (07:38→07:58)
[2024-08-02] MEDS: Nicotine PATCH 14 MG/24 HR PATCH TRANSDERM SCH (09:05)
[2024-08-02] MEDS: CMC:FLUTICAS/UMECLI/VILANT 100-62.5-25 MDI (NF) INH SCH (12:19)
[2024-08-03 05:47] LABS: ABS Basophils 0.1 10^3/uL (0.0-0.1); ABS Eosinophils 0.4 10^3/uL (0.0-0.5); ABS Lymphocytes 3.4 10^3/uL (1.0-4.8); ABS Monocytes 1.5 10^3/uL (0.0-0.9); ABS Neutrophils 9.9 10^3/uL (1.5-7.6); ABS Nucleated RBC 0.01 10^3/ul; Eosinophil % 2.4 %; Hematocrit 45.7 % (35-45); Hemoglobin 15.4 g/dL (11.5-14.3); Lymphocyte % 22.3 %; Mean Corpuscular Hemoglobin 31.9 pg (27-33); Mean Corpuscular Hgb Conc 33.6 g/dL (31-36); Mean Corpuscular Volume 95.1 fL (80-97); Mean Platelet Volume 9.6 fL (7.5-11.2); Nucleated Red Blood Cells % 0.1 %/100WBC (0.0-0.8); Platelet Count 234 10^3/uL (150-450); Red Blood Count 4.81 10^6/uL (3.63-4.92); Red Cell Distribution Width 13.9 % (12-17); White Blood Count 15.3 10^3/uL (3.8-11.8)
[2024-08-03 06:08] LABS: Calcium 8.9 mg/dL (8.6-10.3); Creatinine, Serum 0.8 mg/dL (0.51-0.95); Potassium 4.3 mmol/L (3.5-5.0)
[2024-08-03] MEDS ORDERED: Senna TAB 8.6 mg TAB PO PRN (07:26)
[2024-08-04 10:11] VITALS: BP 156/90
== END 2024-08-04 10:10 | disposition home or self-care (01) | DRG 331 ==
LOC: AA 06:08 → MED 10:49 → SSU 08-02 11:16
PROVIDERS: ADMIT Surgery; ATTEND Surgery